=== PATIENT | female | born 1970 | race Caucasian/White ===

== ENCOUNTER 2023-05-04 09:28 | Outpatient (CLI) | payer OTHER ==
--- NOTE | 2023-05-12 09:01 | Mammography Report ---
BILATERAL DIGITAL SCREENING MAMMOGRAM 3D/2D: 05/04/2023 CLINICAL: Routine screening. Comparison is made to exams dated: 08/12/2018 mammogram, 11/22/2013 mammogram, and 11/18/2010 mammogram - [facility]. There are scattered areas of fibroglandular density in both breasts (category b / 25%-50% glandular t issue). No significant masses, calcifications, or other findings are seen in either breast. There has been no significant interval change. IMPRESSION: NEGATIVE There is no mammographic evidence of malignancy. A 1 year screening mammogram is recommended. Based on the Tyrer Cuzick model (a risk assessment model) the patient's lifetime risk is 9.2% and her 10 year risk is 2.5%. According to the ACR, ACS, and NCCN guidelines, an annual breast MRI exam hope g with mammogram is recommended if the patient's lifetime risk is 20% or greater. This exam was interpreted at Station ID: [id number]. NOTE: For mammograms, a report in lay terms will be sent to the patient. Approximately 15% of breast malignancies will not be visualized mammographically. In the management of a palpable breast mass, a negative mammogram must not discourage biopsy of a clinically suspicious lesion. Electronically Signed By: Ava wild/annamaria:05/11/2023 11:50:06 ACR BI-RADS Category 1: Negative 3341F PARENCHYMAL PATTERN: (A) - The breast(s) demonstrate(s) scattered fibroglandular densities. BI-RADS CATEGORY: (1) - 1 RECOMMENDATION: (ANNUAL) - Recommend routine annual screening mammography. [id number] 1 year screening LATERALITY: (B)
== END 2023-05-04 09:29 | disposition home or self-care (01) ==
LOC: DI.N 09:28
PROVIDERS: ATTEND Nurse Practitioner
DX: Z12.31 Encounter for screening mammogram for malignant neoplasm of breast (principal); R92.323 Mammographic fibroglandular density, bilateral breasts

== ENCOUNTER 2023-06-29 15:56 | Outpatient (CLI) | payer OTHER ==
--- NOTE | 2023-06-30 13:05 | Ultrasound Report ---
PROCEDURE: Pelvic w/Transvaginal INDICATIONS: POST MENOPAUSAL BLEEDING TECHNIQUE: Real-time scanning was performed of the pelvic organs, with image documentation. Additional endovagi nal scanning was necessary due to incomplete visualization of the adnexal and endometrial structures by transabdominal scanning. COMPARISON: None. FINDINGS: Very limited exam due to body habitus. Uterus: Uterus is anteverted and normal in size at approximately 8.5 x 3.9 x 4.7 cm. The cervix appe ars normal. The endometrium and myometrium are not well seen. Ovaries: The right ovary was not well seen. The left ovary was only seen by transabdominal imaging an d measures 1.6 x 1.4 x 1.5 cm for a volume of 1.8 cc. There are less than 12 identified follicles. Other: No pathologic free abdominal or pelvic fluid. IMPRESSION: Nondiagnostic exam for evaluation of the uterus, specifically endometrium. Consider MR imaging. Reviewed by: Glenys Reynolds MD on 06/30/2023 1:04 PM PDT Approved by: Glenys Reynolds MD on 06/30/2023 1:04 PM PDT Station ID: [id number]
== END 2023-06-29 15:57 | disposition home or self-care (01) ==
LOC: DI 15:56
PROVIDERS: ATTEND Obstetrics & Gynecology
DX: N95.0 Postmenopausal bleeding (principal)